=== PATIENT | male | born 1945 | race Caucasian/White ===

== ENCOUNTER 2021-05-22 09:33 | Observation (INO) | payer OTHER, MEDICARE, SELFPAY ==
[2021-05-22] VITALS (24 sets, daily range): BP systolic 134–184; BP diastolic 72–97; PULSE 69–92; RESP 3–23; TEMP 36.6–36.8; O2SAT 87–99; BMI 29.5
--- NOTE | ~2021-05-22 | CT_ITS ---
EXAMINATION: CT brain wo con DATE: 05/22/2021 10:38 INDICATION: Fall. Seizure. TECHNIQUE: Computed tomography (CT) of the head was performed without intravenous contrast. The mA wa s adjusted according to patient size. Iterative reconstruction technique was employed. Exam dose: 68 1.00 mGy-cm total exam DLP. COMPARISON: None FINDINGS: Bilateral vertebral artery, basilar artery calcification and bilateral carotid siphon and s upraclinoid internal carotid artery calcifications. Chronic lacunar infarct of the left periventricular white matter. There is nonspecific diminished att enuation cerebral white matter, likely due to chronic small vessel ischemic changes. There is global cerebral cortical volume loss. No intracranial mass lesion or hemorrhage or recent cerebrovascular accident is detected. No midline shift or mass effect effect. No fracture or bone destruction of the cranial vault. Bilateral nasal plate fractures, likely chronic; recommend clinical correlation. There is a large polypoid soft tissue opacity of the right maxillary sinus. The paranasal sinuses and mastoid air cells are otherwise unremarkable. No fracture or bone destruction of the cranial vault. IMPRESSION: Cerebral atherosclerosis and chronic small vessel ischemic changes of cerebral white mat ter Chronic left periventricular lacunar infarct No acute intracranial finding Large polypoid soft tissue opacity of right maxillary sinus Reviewed, dictated and finalized at [facility]. Reviewed, dictated and finalized at location [facility]. IMPRESSION: Cerebral atherosclerosis and chronic small vessel ischemic changes of cerebral white matter Chronic left periventricular lacunar infarct No acute intracranial finding Large polypoid soft tissue opacity of right maxillary sinus
--- NOTE | ~2021-05-22 | XR_ITS ---
XR chest 1V portable DATE: 05/22/2021 10:01 INDICATION: Seizure TECHNIQUE: Portable AP chest on 05/22/2021 at 0954 hours COMPARISON: None FINDINGS: Status post sternotomy. Normal heart size. No hilar or mediastinal enlargement. There is mild infiltrate and/or atelectasis in the lower lung zones. No pleural effusion or pneumotho rax. IMPRESSION: Mild infiltrate or atelectasis at the lung bases Reviewed, dictated and finalized at [facility].
--- NOTE | ~2021-05-22 | CT_ITS ---
EXAMINATION: CT cervical spine wo con DATE: 05/22/2021 10:38 INDICATION: Fall, seizure, neck pain TECHNIQUE: Computed tomography (CT) of the cervical spine was performed without intravenous contrast. Automated exposure control and iterative reconstruction technique were employed. Exam dose: 554.05 mGy-cm total exam DLP. COMPARISON: None FINDINGS: There is reversal of cervical curvature which may be due to muscle spasm and/or positioning . There is moderate degenerative disc disease at C2-3. There is incomplete segmentation at C3-4. There is severe degenerative disease at C4-5, C5-6 and C6-7. Extensive degenerative changes of the apophyseal and uncovertebral joints. IMPRESSION: Reversal of cervical curvature Severe cervical spondylosis No fracture or dislocation Reviewed, dictated and finalized at [facility]. Reviewed, dictated and finalized at [facility].
--- NOTE | ~2021-05-22 | CT_ITS ---
EXAMINATION: CTA brain carotid DATE: 05/22/2021 15:42 INDICATION: Seizure. TECHNIQUE: Computed tomographic angiography (CTA) of the head was performed with 100 mL Omnipaque-350 intravenous contrast. CTA of the neck was performed with intravenous contrast. Automated exposure co ntrol and iterative reconstruction technique were employed. The dose-length product was 1247.16 mGy-c m. Maximum intensity projection and volume rendered 3D-reconstructions were created by the technologi on a separate workstation. COMPARISON: Head CT 05/22/2021 FINDINGS: HEAD CTA: There is no acute ischemic infarct or intracranial hemorrhage. Inferior to the frontal lobe s, there is a 2.5 x 2.6 x 1.0 cm extra-axial mass with hyperostosis, consistent with a meningioma. Th ere is an old infarct infarct involving the left caudate nucleus and left frontal lobe deep white mat ter. The ventricles are normal in size. The orbits are normal. There is mucosal thickening in the par anasal sinuses. There are old fracture deformities of the nasal bones. The mastoid air cells are norm al. The vertebral arteries are codominant. There is moderate stenosis of distal left vertebral artery . There is no significant stenosis of basilar artery or the posterior cerebral arteries. Left P1 post erior cerebral artery segment is absent, a normal variant. The posterior communicating arteries are n ormal. There is no significant stenosis of the intracranial internal carotid arteries or anterior or middle cerebral arteries. Anterior communicating artery is normal. There is no aneurysm. NECK CTA: There is mild scarring at the lung apices. There are no pathologically enlarged lymph nodes . There is no significant stenosis of the cervical vertebral arteries. There is plaque in the proxima l internal carotid arteries. There is 0% stenosis of the proximal right internal carotid artery relat clay to normal distal artery lumen diameter (NASCET criteria). There is 0% stenosis of the proximal le ft internal carotid artery relative to normal distal artery lumen diameter. There is severe cervical spondylosis. IMPRESSION: 1. 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 2. Old infarct involving the left caudate nucleus and left frontal lobe deep white matter. 3. Moderate stenosis of distal left vertebral artery. 4. 0% stenosis of the proximal internal carotid arteries relative to normal distal artery lumen diame ters (NASCET criteria). Reviewed, dictated and finalized at location [facility]. IMPRESSION: 1. 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 2. Old infarct involving the left caudate nucleus and left frontal lobe deep wh ite matter. 3. Moderate stenosis of distal left vertebral artery. 4. 0% stenosis of the proximal internal carotid arteries relative to normal dis suzanne artery lumen diameters (NASCET criteria).
--- NOTE | ~2021-05-22 | MR_ITS ---
EXAMINATION: MR brain/brain stem wo/w con DATE: 05/23/2021 08:20 INDICATION: Seizure. TECHNIQUE: Magnetic resonance imaging (MRI) of the brain and brainstem was performed without and with 20 mL MultiHance intravenous contrast. Sequences included sagittal and axial T1-weighted FSE, axial diffusion-weighted FS EPI, axial T2*-weighted GRE, axial T2-weighted FLAIR Propeller, and axial T2-we ighted Propeller. Postcontrast sequences included axial, sagittal, and coronal T1-weighted FSE. Appar ent diffusion coefficient (ADC) maps were created. COMPARISON: Head CT 05/22/2021 FINDINGS: There are scattered areas of nonspecific increased T2-weighted signal intensity in the cere bral white matter, which is within normal limits for the patient's age. There is an old infarct invol ving the left caudate nucleus and left frontal lobe deep white matter. There is a 2.6 x 1.4 x 2.6 cm enhancing extra-axial mass with dural tails inferior to the frontal lobes at the midline, consistent with a meningioma. There is no intracranial hemorrhage or acute ischemic infarct. The ventricles are normal in size. There is mucosal thickening in the paranasal sinuses. There is a mucous retention cys t in right maxillary sinus. The orbits are normal. The mastoid air cells are normal. IMPRESSION: 1. 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 2. Old infarct involving the left caudate nucleus and left frontal lobe deep white matter. Reviewed, dictated and finalized at location [facility]. IMPRESSION: 1. 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 2. Old infarct involving the left caudate nucleus and left frontal lobe deep wh ite matter.
--- NOTE | 2021-05-22 09:51 | ECG_ITS ---
Measurements Intervals [place] Rate: 93 P: 256 WV: 158 QRS: -87 QRSD: 160 T: 77 QT: 392 QTc: 489 Interpretive Statements SINUS RHYTHM WITH FIRST DEGREE AV BLOCK RIGHT BUNDLE BRANCH BLOCK LEFT ANTERIOR FASCICULAR BLOCK BASELINE WANDER- I, V1, V6 ABNORMAL ECG Electronically Signed On 05-22-2021 20:01:56 CDT by Joss Childers D.O.
--- NOTE | 2021-05-22 10:25 | ED.SEIZURE ---
HPI - Seizure General Chief Complaint: Seizure <Lillian Wallis PA-C - Last Filed: 05/22/21 17:36> Stated Complaint: SEIZURE <Lillian Wallis PA-C - Last Filed: 05/22/21 17:36> Time Seen by Provider: 05/22/21 10:09 <Lillian Wallis PA-C - Last Filed: 05/22/21 17:36> Source: patient and family <ANAIS Moss Last Filed: 05/22/21 17:36> Mode of arrival: EMS <Lillian Wallis PA-C - Last Filed: 05/22/21 17:36> Limitations: no limitations <Lillian Wallis PA-C - Last Filed: 05/22/21 17:36> History of Present Illness HPI Narrative: This is a 75-year-old male that presents to the emergency department after seizure-like activity. Reports they are visiting from out of town. They were at a hotel in the area at [place] [employer] [place]. Per patient had a look of shock on his face. He started to back up and his arms were shaking. He then fell to the floor and had full body shaking movements. Reports this lasted for about 8 minutes or so. Upon arrival of EMS patient was postictal. On arrival to the ED patient is alert and oriented x3. He has no complaints currently. He did bite his tongue during the incident. Denies fever, vision changes, vomiting, numbness, or weakness. <Lillian Wallis PA-C - Last Filed: 05/22/21 17:36> Related Data Home Medications: Home Medications Medication Instructions Recorded Confirmed amlodipine 5 mg PO DAILY 05/22/21 05/22/21 aspirin [Adult Low Dose Aspirin] 81 mg PO DAILY 05/22/21 05/22/21 atorvastatin 40 mg PO HS 05/22/21 05/22/21 buspirone 10 mg PO TID 05/22/21 05/22/21 cholecalciferol (vitamin D3) 125 mcg PO DAILY 05/22/21 05/22/21 [Vitamin D3] citalopram 40 mg PO DAILY 05/22/21 05/22/21 clopidogrel 75 mg PO DAILY 05/22/21 05/22/21 ferrous sulfate 324 mg PO DAILY 05/22/21 05/22/21 geriatric wffeobgo-kvmu-pzul 1 tablet PO DAILY 05/22/21 05/22/21 [Century Senior Formula] isosorbide dinitrate [Isordil] 30 mg PO DAILY 05/22/21 05/22/21 levothyroxine 75 mcg PO DAILY 05/22/21 05/22/21 lisinopril 30 mg PO DAILY 05/22/21 05/22/21 metoprolol tartrate 12.5 mg PO BID 05/22/21 05/22/21 nortriptyline 25 mg PO HS 05/22/21 05/22/21 tamsulosin 0.4 mg PO DAILY 05/22/21 05/22/21 trazodone 100 mg PO HS PRN 05/22/21 05/22/21 vit C-E-zinc wg-qnvk-eyr-zeax 1 cap PO BID 05/22/21 05/22/21 [ICaps AREDS2] vitamin B complex [B 1 tablet PO DAILY 05/22/21 05/22/21 Complex-Vitamin B12] <Lillian Wallis PA-C - Last Filed: 05/22/21 17:36> Allergies/Adverse Reactions: Allergies Allergy/AdvReac Type Severity Reaction Status Date / Time ciprofloxacin [From Cipro] Allergy Itching Verified 05/22/21 18:51 <Lillian Wallis PA-C - Last Filed: 05/22/21 17:36> Review of Systems Review of Systems: CONSTITUTIONAL: Denies fever CARDIOVASCULAR: Denies chest pain or edema. RESPIRATORY: Denies dyspnea. GASTROINTESTINAL: Denies abdominal pain, nausea, vomiting MUSCULOSKELETAL: Denies back pain, joint pain, or myalgia. NEUROLOGIC: Denies headache, numbness, or weakness. <Lillian Wallis PA-C - Last Filed: 05/22/21 17:36> All systems reviewed & are unremarkable except as noted in HPI and below <Lillian Wallis PA-C - Last Filed: 05/22/21 17:36> [facility] Past Medical History Medical History: Medical History (Updated 05/22/21 @ 17:29 by Lillian Wallis PA-C) Benign prostatic hyperplasia Cerebrovascular accident Chronic left periventricular lacunar infarct noted on brain CT on 05/22/2021. Congestive heart failure Coronary artery disease Hyperlipidemia Hypertension <Llilian Wallis PA-C - Last Filed: 05/22/21 17:36> Surgical History Surgical History: Surgical History (Updated 05/22/21 @ 10:29 by Lillian Wallis PA-C) History of coronary artery bypass graft History of coronary artery stent placement <Lillian Wallis PA-C - Last Filed: 05/22/21 17:36> Social History Social History: Social History (Updated 05/22/21 @ 16:13
[2021-05-22 10:26] LABS: Basophils Absolute Auto 0.1 K/mm3 (0.0-0.1); Basophils Percent Auto 0.7 % (0.2-1.2); Eosinophils Absolute Auto 0.4 K/mm3 (0-0.3); Eosinophils Percent Auto 4.3 % (0-4.4); Hemoglobin 15.2 g/dL (14.0-18.0); Immature Granulocyte Absolute 0.06 K/mm3 (0.00-0.031); Immature Granulocyte Percent A 0.7 % (0-0.5); Lymphocytes Percent Auto 20.7 % (18.3-44.2); Mean Corpuscular HGB Conc 32.3 g/dl (32-36); Mean Corpuscular Hemoglobin 30.6 pg (26-34); Mean Corpuscular Volume 94.6 fl (80-100); Mean Platelet Volume 10.3 fl (7.4-10.4); Monocytes Absolute Auto 0.5 K/mm3 (0.1-0.6); Monocytes Percent Auto 6.1 % (2.6-8.5); Neutrophils Absolute Auto 5.6 K/mm3 (1.3-6.7); Neutrophils Percent Auto 67.5 % (45.5-73.1); Platelet Count Result 205 k/mm3 (150-375); Red Blood Count 4.97 M/mm3 (4.6-6.20); White Blood Count 8.2 K/mm3 (4.5-10.0)
[2021-05-22 10:39] LABS: Ethanol < 10 mg/dL (<10)
[2021-05-22 10:43] LABS: Alanine Aminotransferase 31 U/L (4-50); Albumin Level 4.2 g/dL (3.5-5.1); Alkaline Phosphatase 102 U/L (38-126); Anion Gap 15 mmol/L (8-16); Aspartate Amino Transferase 24 U/L (17-59); Bilirubin,Total 0.6 mg/dL (0.2-1.3); Blood Urea Nitrogen 16 mg/dL (9-20); Calcium 9.4 mg/dL (8.4-10.2); Carbon Dioxide 19 mmol/L (22-30); Chloride 107 mmol/L (98-107); Estimated CRCL calculation 49 ml/min; Estimated Glomerular Filt Rate 50; Glucose 180 mg/dL (65-110); Magnesium 2.2 mg/dL (1.6-2.3); Potassium 3.8 mmol/L (3.4-5.0); Sodium 141 mmol/L (137-145)
[2021-05-22 12:05] LABS: Glucose Point of Care 157 mg/dl (65-105)
[2021-05-22 13:33] LABS: Free T4 Free Thyroxine Reflex 1.04 ng/dL (0.78-2.19)
[2021-05-22 14:25] LABS: Add Urine Microscopic? YES; Appearance Urine Clear (Clear); Bilirubin Urine Negative (Negative); Blood Urine Negative (Negative); Color Urine Yellow (Yellow); Glucose Urine UA Negative (Negative); Ketones Urine Trace mg/dL (Negative); Leukocyte Esterase Ur Negative LEU/UL (Negative); Mucus Urine Rare /lpf; Nitrate Urine Negative (Negative); Protein Urine 2+ mg/dL (Negative); Urobilinogen Urine Negative mg/dL (<2.0); WBC Urine 0-3 /hpf
[2021-05-22 14:44] LABS: Amphetamine Screen Urine Negative (Negative); Barbiturate Screen Urine Negative (Negative); Benzodiazepines Screen Urine Negative (Negative); Cannabinoid Screen Urine Negative (Negative); Cocaine Screen Urine Negative (Negative); Methadone Screen Urine Negative (Negative); Opiate Screen Urine Negative (Negative); Phencyclidine Screen Urine Negative (Negative)
[2021-05-22 14:56] LABS: Total Triiodothyronine (T3) 1.17 NG/ML (0.97-1.69)
[2021-05-22] MEDS: levETIRAcetam 500MG/NACL 100ML 500 MG/100 ML BAG 400 MG IVPB ×2 (15:28→20:10)
--- NOTE | 2021-05-22 16:00 | PM.IMHP ---
H&P: HPI History of Present Illness Date/Time: 05/22/21 16:00 Chief Complaint: Seizure. Narrative: This is a 75-year-old male with history of stroke, coronary artery disease, congestive heart failure, hypertension, hyperlipidemia, and benign prostatic hyperplasia who presented to the emergency department earlier today via EMS from a local hotel for evaluation after a seizure. The patient and his live in [place], [place] and are currently in town visiting friends. Not long prior to arrival, they were standing in the hotel lobby getting coffee when the patient suddenly had a look of shock on his face. He then stumbled backwards with shaking arms and ultimately he fell on his back onto the floor. The and bystanders report that he had full body shaking movements which lasted for several minutes before he came to. He was postictal on EMS arrival and they note that he did bite his tongue. There was no mention of incontinence. reports that he did not hit his head in the fall. At the time my evaluation he is alert and oriented x4. He does not, however, recall the events that happened earlier today. He does not have many complaints at the time my evaluation aside from discomfort of his tongue, especially when talking. He does mention that for the last month or so that he has been having episodes of dizziness that seem to occur within seconds to minutes when going from a seated to standing position. When that occurs he gets of feeling of pressure in the back of his head and has difficulties focusing his eyes. He has not had any falls or loss of consciousness and was referred to an ENT specialist whom he is supposed to see within the next week or so. 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 He denies significant visual changes although he did need a new lens prescription recently. No change in smell or taste. He has not had any memory loss or change in personality. He has no history of seizures. He denies head and neck pain. No paresthesias or focal weakness. He does not think he injured himself in the fall. He does not use alcohol in excess quantities and does not take benzodiazepines. He has been getting good sleep. No change in medications or cvfb-xxi-lzanish supplements. Review of Systems Review of Systems: Twelve systems were reviewed with pertinent positives and negatives as per HPI. No fever, chills, or sweats. No recent cold or flu symptoms. He denies focal weakness and paresthesias. No dysphagia or concerns for aspiration. He has occasional sinus congestion but nothing significant. No known history of nasal polyps. He does not check his glucose at home ?as is always been well controlled.? He has pretty significant edema in the legs bilaterally, below the knees. No known history of retinopathy or nephropathy. Was recently told he has maturing cataracts and evidence of dry macular degeneration. No sick contacts. No known exposure to those positive for COVID 19. The patient suffers from posttraumatic stress disorder from his time in [place]. No significant depression or anxiety. Except as documented, all other systems were reviewed and are negative. [facility] Past Medical History Medical History (Updated 05/22/21 @ 22:28 by Loli Melvin PA-C) Benign prostatic hyperplasia Cerebrovascular accident Chronic left periventricular lacunar infarct noted on brain CT on 05/22/2021. Congestive heart failure Coronary artery disease History of stents and 6 vessel bypass. History of testicular cancer Hyperlipidemia Hypertension Hypothyroidism Posttraumatic stress disorder Surgical History Surgical History (Updated 05/22/21 @ 22:19 by Loli Melvin PA-C) History of appendectomy History of arthroscopy of right knee History of bilateral orchiectomies For testicular cancer. History of coronary artery bypass graft 6 vessel bypass. History of coronary artery stent placement
--- NOTE | 2021-05-22 18:26 | ADMGEN ---
This patient, Jb Leon, was admitted to Medical Room 341-01. Patient/family oriented to hospital policies and general routines including ID bracelet, bed and alarms, visiting hours, pain management, procedures, bathroom and other care routines, personal items, smoking policy, room service/diet, and visiting hours. Information on how to activate the Rapid Response Team has been discussed. Patient/Family are encouraged to report perceived risks to care and to ask questions if they do not understand what they are told or what they should do.
[2021-05-22] MEDS: busPIRone HCL 10 MG TABLET PO (23:13)
[2021-05-22] MEDS: ATORVASTATIN 40 MG TABLET PO (23:14)
[2021-05-22] MEDS: METOPROLOL TARTRATE 12.5 MG TABLET PO (23:14)
[2021-05-23] VITALS (10 sets, daily range): BP systolic 107–141; BP diastolic 49–76; PULSE 51–96; RESP 16; TEMP 35.9–36.7; O2SAT 93–96
[2021-05-23] MEDS: LEVOTHYROXINE SODIUM 75 MCG TABLET PO (05:37)
[2021-05-23 05:49] LABS: Hemoglobin A1C 6.8 % (<5.7)
[2021-05-23 05:55] LABS: Anion Gap 9 mmol/L (8-16); Blood Urea Nitrogen 13 mg/dL (9-20); Calcium 8.8 mg/dL (8.4-10.2); Carbon Dioxide 25 mmol/L (22-30); Chloride 103 mmol/L (98-107); Estimated CRCL calculation 60 ml/min; Estimated Glomerular Filt Rate 54; Glucose 120 mg/dL (65-110); Magnesium 2.3 mg/dL (1.6-2.3); Potassium 3.7 mmol/L (3.4-5.0); Sodium 137 mmol/L (137-145)
--- NOTE | 2021-05-23 06:00 | ECHO_ITS ---
Patient Info Name: Jb Leon Age: 75 years : 1945 Gender: Male Ht: 74 in Wt: 230 lbs BSA: 2.35 m2 HR: 63 bpm BP: 141 / 76 mmHg Heart Rhythm: Sinus Rhythm Exam Date: 05/23/2021 9:14 AM Exam Location: [facility] Patient Status: Outpatient Admit Date: 05/22/2021 Staff Ordering Physician: Lillian Wallis PA-C Emergency Manager: Uvaldo Vasquez, CHAYITO, RT Attending Provider: Roberth Paul MD Referring Physician: Bimal MORALES; Exam Type: CA echo dop color flow w con Study Info Indications R55 - Syncope and collapse Complete two-dimensional, color flow and Doppler transthoracic echocardiogram is performed with contrast to opacify the left ventricle and to improve the deliniation of the left ventricle endocardial borders. Summary 1. Left ventricular chamber dimension is normal. 2. Left ventricular systolic function is Empty, estimated at 50-55%. 3. Definity contrast injected to improve visualization. 4. Right ventricular chamber dimension is mildly enlarged. 5. No significant valvular pathology. Left Ventricle Left ventricular chamber dimension is normal. Left ventricular systolic function is Empty, estimated at 50-55%. The left ventricular diastolic function is normal. Definity contrast injected to improve visualization. Right Ventricle Right ventricular chamber dimension is mildly enlarged. Left Atria Left atrial chamber dimension is mildly enlarged. Right Atria Right atrial chamber dimension is normal. Aortic Valve The aortic valve is normal. There is trace aortic valve regurgitation. Pulmonic Valve The pulmonic valve is not well visualized. Mitral Valve The mitral valve has normal leaflets. Tricuspid Valve The tricuspid valve leaflets are normal. Pericardium/Pleural The pericardium appears normal. Aorta The aortic root size at the sinus of Valsalva is normal. Left Ventricular Outflow Tract Name Value Normal LVOT 2D LVOT Diameter 2.10 cm LVOT Doppler LVOT Peak Gradient 2 mmHg LVOT Mean Gradient 1 mmHg LVOT VTI 18.34 cm LVOT VTI/AV VTI Ratio 0.77 LVOT Stroke Volume 63.40 ml LVOT CO 3.35 l/min LVOT CI 1.42 L/min/m2 Mitral Valve Name Value Normal MV Doppler MV Decel [place] 295.49 cm/s2 MV PHT 0 s MV Area (PHT) 3.50 cm2 4.00-5.00 MV Diastolic Function MV E Peak Velocity 64.11 cm/s MV A Peak Velocity 89.89 cm/s MV E/A 0.71 MV Decel Time
[2021-05-23] MEDS: OPTI-GEN TAB 1 TABLET PO ×2 (08:45→17:03)
[2021-05-23] MEDS: CHOLECALCIFEROL 1,000 UNITS TABLET 5000 UNITS PO (08:45)
[2021-05-23] MEDS: lisinopriL 10 MG TABLET 30 MG PO (08:45)
[2021-05-23] MEDS: TAMSULOSIN HCL 0.4 MG CAPSULE PO (08:46)
[2021-05-23] MEDS: VITAMIN B COMPLEX CAPSULE 1 CAP PO (08:46)
[2021-05-23] MEDS: ASPIRIN 81 MG ENTERIC TABLET PO (08:46)
[2021-05-23] MEDS: MULTIVITAMINS /C LUTEIN (CENTRUM SILVER) TABLET *BKC 1 TAB PO (08:46)
[2021-05-23] MEDS: ISOSORBIDE DINITRATE 10 MG TABLET 30 MG PO (08:46)
[2021-05-23] MEDS: busPIRone HCL 10 MG TABLET PO ×3 (08:46→17:03)
[2021-05-23] MEDS: FERROUS SULFATE 324 MG TABLET PO (08:46)
[2021-05-23] MEDS: CLOPIDOGREL BISULFATE 75 MG TABLET PO (08:46)
[2021-05-23] MEDS: amLODIPine BESYLATE 5 MG TABLET PO (08:46)
[2021-05-23] MEDS: METOPROLOL TARTRATE 12.5 MG TABLET PO ×2 (08:47→20:19)
[2021-05-23] MEDS: CITALOPRAM HYDROBROMIDE 20 MG TABLET 40 MG PO (08:47)
[2021-05-23] MEDS: levETIRAcetam 500MG/NACL 100ML 500 MG/100 ML BAG 400 MG IVPB ×2 (08:52→20:19)
--- NOTE | 2021-05-23 09:22 | WPDNEURCNPN ---
Assessment and Plan Additional Plan 75 years old right-handed male with history of generalized seizure and the past history suggestive of incomplete of partial onset in addition to documented negative CTA except the old infarct involving left caudate nucleus and left frontal lobe deep white matter but 2.6cm or factor groove meningioma raising the possibility of partial complex seizure with secondary generalization in addition he has small muscle wasting of the left upper extremity along with the action tremor but no resting component. MRI of cervical spine would be necessary to rule out the possibility of cervical myelopathy or else it could be secondary to left ulnar neuropathy, he will need an EEG and initiation of the anticonvulsants and referral to the neurosurgical service in the meantime other investigations can be completed Consult date: 05/23/21 Time Seen: 09:00 HPI: Jb Leon is a 75 year old maleHas been admitted to the hospital through the emergency room for the complaints of generalized seizures in addition to the ongoing history of 1. Previous stroke 2. Coronary artery disease 3. Congestive heart failure 4. Hypertension 5. Hyperlipidemia 6. Benign prostatic hypertrophy present a patient was brought to the emergency room via EMS from local [facility] where he was staying with his 5 though they live in [place] [facility] and were currently in town visiting friends reportedly they were standing in the hotel lobby getting coffee when the patient suddenly had a look of shock on his face and stumbled backwards shaking his upper extremities and ultimately falling backward on to the floor. Was noted to have full body shaking movements for several minutes before he was brought to the emergency room he was also postictal on EMS arrival though he did not bite his tongue. There was no mention of incontinence and also he did not sustain any significant trauma to his head on initial evaluation he was awake alert oriented x4 however he was unable to recall what has exactly happened was complaining of discomfort of his tongue . 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 As mentioned before his past history is consistent with benign prostatic hyperplasia with congestive heart failure coronary artery disease history of stenting 6 vessel bypass history of testicular cancer hypertension hyperlipidemia hypothyroidism and posttraumatic stress disorder. Review of Systems Review of Systems: All systems reviewed & are unremarkable except as noted in HPI and below PMFSH Past Medical History Medical History Benign prostatic hyperplasia Cerebrovascular accident Chronic left periventricular lacunar infarct noted on brain CT on 05/22/2021. Congestive heart failure Coronary artery disease History of stents and 6 vessel bypass. History of testicular cancer Hyperlipidemia Hypertension Hypothyroidism Posttraumatic stress disorder Surgical History Surgical History History of appendectomy History of arthroscopy of right knee History of bilateral orchiectomies For testicular cancer. History of coronary artery bypass graft 6 vessel bypass. History of coronary artery stent placement History of Mohs micrographic surgery for skin cancer Inclu
[2021-05-23] MEDS: PERFLUTREN LIPID MICROSPHERES 1.5 ML VIAL DILUTED TO 10 ML TOTAL VOLUME IV PUSH (09:52)
--- NOTE | 2021-05-23 16:56 | PM.IMPN ---
Progress Note: A&P Assessment and Plan (1) Seizure: Code(s): R56.9 - Unspecified convulsions Status: Acute Assessment and Plan: This is the patient's 1st seizure. Etiology not clear at this time. He does take nortriptyline and trazodone, both which will be held at this time. He has been started on Keppra [address] Mendez. Patient will be monitor on telemetry overnight. Brain MRI and EEG ordered. We did discuss that he will not be able to drive for the next 6 months. Fall and seizure precautions initiated. 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 Unknown to the patient. He does not seem to have any obvious symptoms of such at this time. Could the seizure be related to this? (3) Maxillary sinus polyp: Code(s): J33.8 - Other polyp of sinus Status: Acute Assessment and Plan: Unknown to the patient. He was encouraged to discuss these findings with the ENT he has an appointment within the coming weeks. (4) Hypertension: Code(s): I10 - Essential (primary) hypertension Status: Acute Assessment and Plan: Blood pressures were reviewed and they have been running high though he did not take his medication yet today. Continue antihypertensives and monitor. (5) Hypothyroidism: Code(s): E03.9 - Hypothyroidism, unspecified Status: Acute Assessment and Plan: Continue levothyroxine and check TSH. Subjective Date/time seen: 05/23/21 16:56 Chief Complaint: Seizure. Narrative: This is a 75-year-old male with history of stroke, coronary artery disease, congestive heart failure, hypertension, hyperlipidemia, and benign prostatic hyperplasia who presented to the emergency department earlier today via EMS from a local hotel for evaluation after a seizure. The patient and his live in [place], [place] and are currently in town visiting friends. Not long prior to arrival, they were standing in the hotel lobby getting coffee when the patient suddenly had a look of shock on his face. He then stumbled backwards with shaking arms and ultimately he fell on his back onto the floor. The and bystanders report that he had full body shaking movements which lasted for several minutes before he came to. He was postictal on EMS arrival and they note that he did bite his tongue. There was no mention of incontinence. reports that he did not hit his head in the fall. At the time my evaluation he is alert and oriented x4. He does not, however, recall the events that happened earlier today. He does not have many complaints at the time my evaluation aside from discomfort of his tongue, especially when talking. He does mention that for the last month or so that he has been having episodes of dizziness that seem to occur within seconds to minutes when going from a seated to standing position. When that occurs he gets of feeling of pressure in the back of his head and has difficulties focusing his eyes. He has not had any falls or loss of consciousness and was referred to an ENT specialist whom he is supposed to see within the next week or so. 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 He denies significant visual changes although he did ne
[2021-05-23] MEDS: ATORVASTATIN 40 MG TABLET PO (20:19)
[2021-05-24] VITALS (7 sets, daily range): BP systolic 120–141; BP diastolic 63–81; PULSE 49–92; RESP 18; TEMP 35.8–36; O2SAT 94
[2021-05-24] MEDS: LEVOTHYROXINE SODIUM 75 MCG TABLET PO (05:28)
[2021-05-24 06:11] LABS: Alanine Aminotransferase 26 U/L (4-50); Albumin Level 3.6 g/dL (3.5-5.1); Alkaline Phosphatase 83 U/L (38-126); Anion Gap 10 mmol/L (8-16); Aspartate Amino Transferase 22 U/L (17-59); Bilirubin,Total 0.4 mg/dL (0.2-1.3); Blood Urea Nitrogen 16 mg/dL (9-20); Calcium 9.2 mg/dL (8.4-10.2); Carbon Dioxide 25 mmol/L (22-30); Chloride 103 mmol/L (98-107); Estimated CRCL calculation 60 ml/min; Estimated Glomerular Filt Rate 54; Glucose 124 mg/dL (65-110); Potassium 4.2 mmol/L (3.4-5.0); Sodium 138 mmol/L (137-145)
[2021-05-24] MEDS: TAMSULOSIN HCL 0.4 MG CAPSULE PO (09:19)
[2021-05-24] MEDS: VITAMIN B COMPLEX CAPSULE 1 CAP PO (09:20)
[2021-05-24] MEDS: ASPIRIN 81 MG ENTERIC TABLET PO (09:20)
[2021-05-24] MEDS: CHOLECALCIFEROL 1,000 UNITS TABLET 5000 UNITS PO (09:20)
[2021-05-24] MEDS: FERROUS SULFATE 324 MG TABLET PO (09:20)
[2021-05-24] MEDS: busPIRone HCL 10 MG TABLET PO ×2 (09:20→12:53)
[2021-05-24] MEDS: METOPROLOL TARTRATE 12.5 MG TABLET PO (09:21)
[2021-05-24] MEDS: ISOSORBIDE DINITRATE 10 MG TABLET 30 MG PO (09:21)
[2021-05-24] MEDS: CLOPIDOGREL BISULFATE 75 MG TABLET PO (09:21)
[2021-05-24] MEDS: OPTI-GEN TAB 1 TABLET PO (09:21)
[2021-05-24] MEDS: lisinopriL 10 MG TABLET 30 MG PO (09:22)
[2021-05-24] MEDS: amLODIPine BESYLATE 5 MG TABLET PO (09:22)
[2021-05-24] MEDS: MULTIVITAMINS /C LUTEIN (CENTRUM SILVER) TABLET *BKC 1 TAB PO (09:22)
[2021-05-24] MEDS: CITALOPRAM HYDROBROMIDE 20 MG TABLET 40 MG PO (09:23)
[2021-05-24] MEDS: levETIRAcetam 500MG/NACL 100ML 500 MG/100 ML BAG 400 MG IVPB (09:26)
--- NOTE | 2021-05-24 09:58 | WPDNEUROLOGY ---
Neurology EEG Report General Information Date of Study: 05/24/21 TEST eeg DIAGNOSIS Seizures CONDITION OF RECORDING awake drowsy and sleep EEG NUMBER [id number] CLINICAL HISTORY history of seizures no further information available. EEG DESCRIPTION Basic resting occipital frequency consists of very poorly organized low voltage 8 to 10 hertz per 2nd alpha posteriorly admixed with low-voltage 15 to 21 hertz per 2nd beta. During drowsiness low-voltage beta activity seen diffusely admixed with multiple movements artifacts. Bilateral symmetrical sleep activity seen. Hyperventilation not done. Photic stimulation not done. Non paroxysmal. Nonfocal. Nonlateralizing. IMPRESSION No significant abnormalities noted
--- NOTE | 2021-05-24 11:25 | WPDNEURCNPN ---
Consult date: 05/24/21 Time Seen: 10:00 HPI: Jb Leon is a 75 year old male with negative evaluation except the olfactory groove meningioma and history of the seizure will be started on anticonvulsants and followed as an outpatient and most likely will refer for the neurosurgical 2nd opinion [facility] Past Medical History Medical History Benign prostatic hyperplasia Cerebrovascular accident Chronic left periventricular lacunar infarct noted on brain CT on 05/22/2021. Congestive heart failure Coronary artery disease History of stents and 6 vessel bypass. History of testicular cancer Hyperlipidemia Hypertension Hypothyroidism Posttraumatic stress disorder Surgical History Surgical History History of appendectomy History of arthroscopy of right knee History of bilateral orchiectomies For testicular cancer. History of coronary artery bypass graft 6 vessel bypass. History of coronary artery stent placement History of Mohs micrographic surgery for skin cancer Including basal cell carcinoma and squamous cell carcinoma. History of nasal surgery Related to nasal bone fractures. History of partial thyroidectomy For benign growth. History of repair of left rotator cuff History of right inguinal hernia repair History of tonsillectomy Family History Family History Other Diabetes mellitus Heart disease Hypertension Social History Social History Social History: The patient lives in [place], [place] with his . He served in [employer] and was exposed [employer]. Retired computer systems analyst. He smoked briefly while in the service. He drinks perhaps 1 to 2 glasses of wine maybe a couple of times a week. No illicit substance use. He designates his , [place], as his surrogate decision maker and he wishes to be a full code. Meds Home Medications and Allergies Home Medications Medication Instructions Recorded Confirmed Type amlodipine 5 mg PO DAILY 05/22/21 05/22/21 History aspirin [Adult Low Dose Aspirin] 81 mg PO DAILY 05/22/21 05/22/21 History atorvastatin 40 mg PO HS 05/22/21 05/22/21 History buspirone 10 mg PO TID 05/22/21 05/22/21 History cholecalciferol (vitamin D3) 125 mcg PO DAILY 05/22/21 05/22/21 History [Vitamin D3] citalopram 40 mg PO DAILY 05/22/21 05/22/21 History clopidogrel 75 mg PO DAILY 05/22/21 05/22/21 History ferrous sulfate 324 mg PO DAILY 05/22/21 05/22/21 History geriatric [id number]-jqwl-ybyj 1 tablet PO DAILY 05/22/21 05/22/21 History [Century Senior Formula] isosorbide dinitrate [Isordil] 30 mg PO DAILY 05/22/21 05/22/21 History levothyroxine 75 mcg PO DAILY 05/22/21 05/22/21 History lisinopril 30 mg PO DAILY 05/22/21 05/22/21 History metoprolol tartrate 12.5 mg PO BID 05/22/21 05/22/21 History nortriptyline 25 mg PO HS 05/22/21 05/22/21 History tamsulosin 0.4 mg PO DAILY 05/22/21 05/22/21 History trazodone 100 mg PO HS PRN 05/22/21 05/22/21 History vit C-E-zinc [id number]-rhwn-cfw-zeax 1 cap PO BID 05/22/21 05/22/21 History [ICaps AREDS2] vitamin B complex [B 1 tablet PO DAILY 05/22/21 05/22/21 History Complex-Vitamin B12] Allergies Allergy/AdvReac Type Severity Reaction Status Date / Time ciprofloxacin [From Cipro] Allergy Itching Verified 05/22/21 18:51 Vital Signs Vital Signs - 24 hr 05/23/21 12:00 05/23/21 14:00 05/23/21 16:00 Temperature 36.2 C L Pulse Rate 59 L 66 57 L Respiratory Rate 16 Blood Pressure 107/49 L Pulse Oximetry 94 05/23/21 20:15 05/23/21 20:18 05/23/21 20:19 Temperature 35.9 C L Pulse Rate 62 63 63 Respiratory Rate 16 Blood Pressure 136/61 Pulse Oximetry 93 05/24/21 00:00 05/24/21 04:00 05/24/21 05:30 Temperature 36.0 C L Pulse Rate 59 L 49 L 65 Respiratory Rate 18 Blood Pressure 141/81 H Pulse Oxim
--- NOTE | 2021-05-24 12:13 | PM.DS ---
DS: Admitting Diagnosis Admitting Diagnosis seizure DS: Discharge Diagnosis Discharge Diagnosis (1) Seizure: Code(s): R56.9 - Unspecified convulsions Status: Acute Assessment and Plan: This is the patient's 1st seizure. Etiology not clear at this time. He does take nortriptyline and trazodone, both which will be held at this time of admission. He was started on Keppra 500 twice a day. Brain MRI and EEG was done. 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 Neurology was consulted. Possibility of partial complex seizure with secondary generalization sought . He suggested continuing on antiseizure medication. Will discharge on Keppra 5750 mg twice a day. EEG was negative that was done in the hospital. He will need a neurosurgery evaluation as an outpatient basis for his meningioma. He is advised to see a neurologist and neurosurgeon as an outpatient basis when he gets back to [place]. 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 He was encouraged to discuss these findings with the ENT he has an appointment within the coming weeks. (4) Hypertension: Code(s): I10 - Essential (primary) hypertension Status: Acute Assessment and Plan: Blood pressures were reviewed and they have been running high though he did not take his medication yet today. Continue antihypertensives and monitor. (5) Hypothyroidism: Code(s): E03.9 - Hypothyroidism, unspecified Status: Acute Assessment and Plan: Continue levothyroxine and check TSH. DS: Summary Hospital Course Hospital Course: see above Time Spent with Patient Time attestation: Total time spent providing and/or coordinating discharge services: 45 minutes Exam Narrative: Patient is comfortable, NAD HEENT: eyes are clear and none icteric LUNGS:CTA HEART: RR S1S2 ABD: BS+, Soft and nontender Lower extremities: no edema SKIN: nonjaundiced Neuro: grossly intact. DS: Data Data Completed and Pending Labs on day of discharge: Labs from last 24 hours 05/24/21 05:36 Sodium 138 Potassium 4.2 Chloride 103 Carbon Dioxide 25 Anion Gap 10 BUN 16 Creatinine 1.30 Estim Creat Clear Calc 60 Estimated GFR 54 L Glucose 124 H Calcium 9.2 Total Bilirubin 0.4 AST 22 ALT 26 Alkaline Phosphatase 83 Total Protein 7.0 Albumin 3.6 Imaging Radiologist's impression: ITS Impressions Chest X-Ray 05/22/21 10:03 IMPRESSION: Mild infiltrate or atelectasis at the lung bases Head CT 05/22/21 10:48 IMPRESSION: Cerebral atherosclerosis and chronic small vessel ischemic changes of cerebral white matter Chronic left periventricular lacunar infarct No acute intracranial finding Large polypoid soft tissue opacity of right maxillary sinus Cervical Spine CT 05/22/21 10:53 IMPRESSION: Reversal of cervical curvature Severe cervical spondylosis No fracture or dislocation Head/Neck CTA 05/22/21 15:44 IMPRESSION: 1. 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 2. Old infarct involving the left caudate nucleus and left frontal lobe deep white matter. 3. Moderate stenosis of distal left vertebral artery. 4. 0% stenosis of the proximal internal carotid arteries relative to normal distal artery lumen diameters (NASCET criteria). Brain MRI 05/23/21 08:31 IMPRESSION: 1. 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 2. Old infarct involving the left caudate nucleus and left frontal lobe deep white matter. Discharge Plan Discharge Attending physician on discharge: Hernando Kimball Consulting providers: Ena Huffman ; Kosta Mendez ; Lillian Wallis
== END 2021-05-24 15:03 | disposition home or self-care (01) ==
LOC: ANHED 15:18 → ANH3MED 17:29
PROVIDERS: Family Medicine; Physician Assistant; Admitting Provider Internal Medicine Critical Care Medicine; Emergency Provider General Practice; Visit Provider Internal Medicine
DX: R56.9 Unspecified convulsions (principal); D32.9 Benign neoplasm of meninges, unspecified; I11.0 Hypertensive heart disease with heart failure; I50.9 Heart failure, unspecified; I25.10 Atherosclerotic heart disease of native coronary artery without angina pectoris; E03.9 Hypothyroidism, unspecified; E78.5 Hyperlipidemia, unspecified; N40.0 Benign prostatic hyperplasia without lower urinary tract symptoms; J33.8 Other polyp of sinus; Z86.73 Personal history of transient ischemic attack (TIA), and cerebral infarction without residual deficits; Z87.891 Personal history of nicotine dependence; Z85.47 Personal history of malignant neoplasm of testis; Z79.899 Other long term (current) drug therapy
CPT/HCPCS: 36415; 70450; 70496; 70498; 70553; 71045; 72125; 80048; 80053; 80307; 81001; 82948; 83036; 83735; 84439; 84443; 84480; 85025; 93005; 95816; 96365; 96366; 96374; 96375; 96376; 97161; 99285; A9270; A9577; C8929; G0378; J1953; Q9957; Q9967